=== PATIENT | female | born 1990 | race African-American/Black ===

== ENCOUNTER 2017-05-16 17:23 | Emergency (ER) | payer OTHER ==
[~2017-05-16] VITALS: Ht 157.5 cm; Wt 49.9 kg
[2017-05-16 18:20] VITALS: BP 142/87
== END 2017-05-16 18:21 | disposition home or self-care (01) ==
LOC: ER 17:27
DX: R11.2 Nausea with vomiting, unspecified (principal); R10.9 Unspecified abdominal pain
CPT/HCPCS: 99283; A4606; Z7610